=== PATIENT | male | born 1975 | race Hispanic/Latino ===

== ENCOUNTER 2025-05-03 07:03 | Inpatient (IN) | payer BC ==
[~2025-05-03] VITALS: Ht 172.7 cm; Wt 66.3 kg
[~2025-05-03 07:03] MED LIST: HYDR-3421 PO; LACT-441 PO
[2025-05-03 07:30] VITALS: BP 126/76; PULSE 79; RESP 18; TEMP 98.2
[2025-05-03] MEDS ORDERED: LIDOCAINE HCL 1% MDV 50ML VIAL ONE (08:51)
[2025-05-03] MEDS ORDERED: HEParin-NS 1,000 UNIT/500 ML 500 ML IV ONE (08:51)
[2025-05-03] MEDS ORDERED: MIDAZOLAM HCL 1 MG/ML 2ML VIAL ONE ×2 (09:08→09:30)
[2025-05-03] MEDS ORDERED: IOHEXOL-350 50ML VIAL IV ONE (09:22)
--- NOTE | 2025-05-03 10:45 | NUR ---
UNIT ARRIVAL PATIENT ARRIVED ON UNIT FROM [facility] ALERT/ORIENTED X3, NO PAIN, NO FURTHER QUESTIONS PATIENT IN NO DISTRESS, PRESENT AT BEDSIDE HAS A RIGHT BILLIARY DRAIN INSERTED, CLEAN AND INTACT
[2025-05-03] MEDS: 0.9%NACL 1000ML 1,000 ML IV SCH (11:30)
--- NOTE | 2025-05-03 11:41 | CCATH ---
PROCEDURE PERFORMED: Percutaneous transhepatic cholangiogram with placement of an 8-Persian multipurpose external drainage catheter. HISTORY: This is a 50-year-old male with jaundice for PTC with drainage. The patient also had undergone liver biopsy on 04/30/2025. Path report is pending. DESCRIPTION OF PROCEDURE: The patient was titrated with 4 mg of Versed and 200 mcg of fentanyl for sedation. Under fluoroscopy guidance on the right side, 1% Xylocaine was used for local anesthetic using a right lateral mid-axillary approach. A Chiba needle was placed into the biliary radicle. The right ducts are dilated. Multiple attempts were made over an angiographic wire and catheter to put the catheter in the common bile duct, but there is obstruction at the confluence. Therefore, an 8-Persian drainage catheter was placed into the dilated radicle in the right lobe of the liver and left for allowed external drainage. The catheter was secured. IMPRESSION: Obstruction at the level of the confluence of the right and left biliary radicle. Unable to place a catheter or wire. Therefore, an external 8-Persian drainage catheter was left for decompression and we will attempt in 48 hours to put an internal biliary catheter. TID: [id number] RECEIPT: [id number]
[2025-05-03 12:00] VITALS: BP 108/71; PULSE 72; RESP 20; TEMP 97.9
--- NOTE | 2025-05-03 12:38 | HP ---
[facility] HISTORY AND PHYSICAL Date of Service: May 03, 2025 Time of Service: 12:16 HISTORY OF PRESENT ILLNESS: Date of service: 05/03/2025, patient was seen in [facility] room 320 50-year-old male with previous history of colon cancer status post hemicolectomy in 10/2022. Patient was found to have stage III disease and was recommended to have adjuvant chemotherapy then but patient declined. Patient over the last month noticed that he was having generalized weakness with progressive jaundice. Patient was recently hospitalized in [facility] underwent further evaluation with abdominal MRCP on 04/28/2025 which showed two heterogeneously enhancing hepatic lesions, one in the right lobe at the hilar confluence measuring 3.5 cm x 3.6 cm x 2.3 cm and one subcu capsular lesion in segment 7 measuring 2.6 cm x1 0.4 cm x 2 cm with imaging features concerning for metastasis, there was compression noted of the right and left hepatic ducts with resultant intrahepatic biliary ductal prominence. Labs on 04/30/2025 was significant for WBC count of 6700, hemoglobin of 13.0, MCV of 75, platelet count of 514091. BMP showed sodium of 135, potassium 4.2, BUN of 14 , creatinine 0.7, blood glucose of 193, A1c of 7.6. Liver function tests showed total bilirubin of 18.9, direct bilirubin of 17.6, AST of 117, ALT of 350, alkaline phosphatase of 309. Patient is status post percutaneous transhepatic cholangiogram with placement of eight Scottish multipurpose external drainage catheter placement by Dr. Mir. Patient was found to have obstruction at the level of the confluence of right and left biliary radicle and catheter or wire was unable to be advanced. Patient underwent external eight Scottish catheter placement for decompression and plan is to re-attempt in 48 hours for evaluation of internal biliary catheter placement. Patient denies any significant shortness of breadth. He is having some pain postprocedure involving the drainage catheter site. No bleeding noted with drainage bag with biliary drainage noted. Patient will be monitored closely under hospitalist service and we will see how patient progresses in the next 24-48 hours. REVIEW OF SYSTEMS CONSTITUTIONAL: Denies fevers, chills, or night sweats. No unintentional weight loss reported. NEUROLOGICAL: Denies headache, amaurosis fugax, motor weakness, sensory deficit, vertigo/spinning sensation, gait abnormalities, or tremors. ENT: No hearing loss, otalgia, otorrhea, rhinitis, rhinorrhea, hoarseness, or sore throat. CARDIOVASCULAR: Denies any exertional angina, dyspnea on exertion, orthopnea, paroxysmal nocturnal dyspnea, palpitations, life-threatening arrhythmias, claudication. PULMONARY: Denies any shortness of breath, cough, phlegm/sputum, hemoptysis, pleuritic chest pain. SLEEP: Denies morning headaches, daytime somnolence or napping. Denies difficulty falling asleep, staying asleep, waking from sleep. Denies knowledge of snoring. GASTROINTESTINAL: Denies any type of dysphagia to either liquids or solids. Denies nausea, vomiting, pyrosis, early satiety, abdominal pain, diarrhea, constipation, or changes in stool consistency or caliber. Denies coffee-ground emesis, hematemesis, hematochezia, or melanotic stools. GENITOURINARY: Denies frequency, urgency, nocturia, hematuria or incontinence (Storage/Irritative symptoms.) Low urinary stream, straining to void, urinary intermittency or hesitancy, splitting of the voiding stream, terminal dribbling. ENDOCRINOLOGIC: Denies polyuria, polydipsia, polyphagia or heat/cold intolerances. HEMATOLOGIC: Denies thrombophilia/previous clots, or coagulopathy/bleeding disorders. ONCOLOGIC: Denies personal history of malignancy. DERMATOLOGIC: Denies rashes or pruritus. PSYCHIATRIC: Denies any suicidal or homicidal ideation. Denies hallucinations. ADDITIONAL PAST MEDICAL HISTORY: [History of colon cancer in 2022, recent diagnosis of obstructive jaundice with cholestatic hepatitis, hepatic lesions noted on MRCP) SOCIAL HISTORY: [Negative for smoking, alcohol use, drug use. Patient lives with his , Johnna Esteban. Patient is typically independent of all his ADLs. Patient denies difficulty pain is bills.] SURGICAL HISTORY: [Colectomy, recent CT-guided liver biopsy on 04/29/[address] Mir] Coded Allergies: No Known Drug Allergies (Unverified Allergy, Unknown, 12/21/22) PHYSICAL EXAM GENERAL APPEARANCE: The patient is awake, alert, and oriented, in no acute cardiopulmonary distress. NEUROLOGICAL: Cranial nerves II-XII grossly intact. Motor is 5/5 in bilateral upper and lower extremities proximal to distal. No sensory deficits. HEENT: Face is symmetric. Pupils are equal and reactive. Extraocular movements are intact. NECK: Supple. No JVD. No thyromegaly. No submental, submandibular, pre- /postauricular, occipital or supraclavicular lymphadenopathy. CHEST: Normal chest expansion. No Telemetry. LUNGS: Absence of any rales, rhonchi or any wheezing. CARDIOVASCULAR: Regular. S1 and S2 normal. No appreciable rubs, murmurs or gallops. ABDOMEN: Soft, nontender, and nondistended. There is no rebound, voluntary guarding, or rigidity. : Deferred. No Hope. EXTREMITIES: Non-edematous and not cyanotic. No clubbing. Good capillary refill. SKIN: No skin breakdown. Vital Sign (Last 24 Hours) 05/03/25 07:30 Temp 98.2 Pulse 79 Resp 18 B/P (MAP) 126/76 Pulse Ox 98 O2 Delivery Room Air FiO2 21 LABS: Current Medications Medications (Trade) Dose Ordered Sig/William Route PRN Reason Start Time Stop Time Status Last Admin Dose Admin Acetaminophen (TYLenol 325MG TAB) 650 mg Q6H PRN PO MILD PAIN (1-3) 05/03/25 11:30 06/02/25 11:29 Famotidine (Pepcid 20mg Tab) 20 mg BID PO 05/03/25 21:00 06/02/25 20:59 Hydromorphone HCl (DiLAUDid 0.5MG INJ) 0.5 mg Q6H PRN IVP SEVERE PAIN (7-10) 05/03/25 11:30 05/08/25 11:29 Ondansetron HCl (zoFRAN 4MG INJ) 4 mg Q6H PRN IVP NAUSEA/VOMITING 05/03/25 11:30 06/02/25 11:29 Sodium Chloride 1,000 ml @ 75 mls/hr [id number] IV 05/03/25 11:30 06/02/25 11:29 DIAGNOSTICS / RADIOLOGY: SERVICE 1032 REASON: ELEVATED BILI ORDERING PHYSICIAN: NELI SALEEM MD PROCEDURE: MRCP WWO - MRCP(ABDWWO)CHOLANGIOPANCREATO ADDENDUM REPORT ADDENDUM: Results were shared by telephone at 11:45 PM EST on 04-28-25 and acknowledged by Nurse Ms. Sindhu Beal. /Eastern EXAM: MRCP and MRI Abdomen with and without contrast CLINICAL HISTORY: Elevated bilirubin; history of colonic malignancy TECHNIQUE: Multiplanar, multisequence MRI of the abdomen was performed with and without intravenous contrast, including MRCP sequences. COMPARISON: No prior studies available for comparison. FINDINGS: Liver: The liver demonstrates surface nodularity with volume redistribution, with relative enlargement of the caudate and left lobes, consistent with underlying chronic liver disease. A heterogeneously appearing mass lesion measuring approximately 3.5 3.6 2.3 cm is seen in the right hepatic lobe at the region of the hilar confluence. This lesion compresses the left and right hepatic ducts, resulting in prominence of the intrahepatic biliary ducts bilaterally. A second subcapsular lesion in segment 7 measures approximately 2.6 1.4 2 cm (series 12, image 23/88). Both lesions are heterogeneously hypointense on T1- and T2-weighted sequences. Post-contrast imaging demonstrates heterogeneous moderate enhancement with peripheral irregular nodular enhancing areas and central non-enhancing regions. The right branch of the portal vein traverses the right lobar lesion and appears thinned and partially compressed. No hepatic venous thrombosis is identified. Minimal perihepatic ascites is present. Biliary System: The gallbladder is surgically absent. The common bile duct is normal in caliber, measuring 4 mm. The right and left hepatic ducts are prominent, measuring 9 mm each, secondary to extrinsic compression by the hepatic lesions. Pancreas: The pancreas is unremarkable. Spleen: The spleen measures 11.6 cm and is unremarkable. Adrenals: Both adrenal glands are unremarkable. Kidneys: Both kidneys are unremarkable. Vascular Structures: The right portal vein branch is thinned and partially compressed by the right hepatic lesion. No evidence of thrombosis in the hepatic veins. IMPRESSION: * Two heterogeneously enhancing hepatic lesions, one in the right lobe at the hilar confluence (3.5 3.6 2.3 cm) and one subcapsular lesion in segment 7 (2.6 1.4 2 cm), with imaging features concerning for metastatic deposits, likely related to known colonic malignancy. * Compression of the right and left hepatic ducts with resultant intrahepatic biliary ductal prominence. * Partial compression and thinning of the right portal vein branch by the right hepatic lesion. Underlying thrombus cannot be excluded. * Surface nodularity and volume redistribution of the liver, suggestive of underlying chronic liver disease. Recommend laboratory and clinical parameters correlation. * Minimal perihepatic ascites. * Gallbladder surgically absent. RECOMMENDATION: Histopathological correlation of the hepatic lesions is recommended for confirmation and characterization. /Eastern ASSESSMENT: Status post percutaneous transhepatic cholangiogram with placement of eight Scottish external drainage catheter by Dr. 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 for severe pain There is plans for repeat procedure in 48 hours for evaluation of internal biliary catheter placement Home medications were reconciled and updated once available Continue with prn antiemetics, pain control, patient will be started on a soft diet today All labs will be repeated in the morning We will keep patient on GI prophylaxis with Pepcid and DVT prophylaxis with SCDs Date of service: 05/03/2025 Plan of care was discussed with patient at bedside, Darwin Graf MD Advanced Care Planning: Which of the following were discussed: Hospice care: Yes __ No _X_ Therapeutic options: Yes _X_ No __ Advance directives: Yes _X_ No __ Other discussions: Discussed with who?: Patient Voluntary nature of this service was explained to the patient? Yes _x_ No __ Amount of time spent: 20 minutes DARWIN GRAF MD May 03, 2025 12:38
[2025-05-03 15:13] VITALS: O2SAT 98
[2025-05-03 16:00] VITALS: BP 133/81; PULSE 67; RESP 20; TEMP 98.1
[2025-05-03 20:00] VITALS: BP 128/75; PULSE 67; RESP 16; TEMP 97.7; O2SAT 97
[2025-05-03] MEDS: FAMOTIDINE 20MG TAB PO SCH (20:49)
[2025-05-04] VITALS (7 sets, daily range): BP systolic 118–149; BP diastolic 71–89; PULSE 69–81; RESP 16–20; TEMP 97.8–98.4; O2SAT 97–99
[2025-05-04 04:59] LABS: IMMATURE GRANULOCYTE ABSOLUTE 0.13 K/uL (0-1); NUCLEATED RED BLOOD CELLS 0.0 % (0.0-0.19); PLATELET COUNT (AUTO) 210 K/uL (130-400); RED BLOOD CELL COUNT(AUTO) 4.71 MIL/uL (4.50-6.20); RED CELL DISTRIBUTION WIDTH 19.6 % (11.0-15.5); WHITE BLOOD COUNT (AUTO) 7.0 K/uL (4.8-10.8)
[2025-05-04 05:12] LABS: INR 0.97 (0.85-1.15)
[2025-05-04 05:23] LABS: ASPARTATE AMINOTRANSFERASE 84.0 U/L (10-37); CREATININE 0.7 mg/dL (0.5-1.3); GLOMERULAR FILTR. RATE CALC 114.0 mL/min (>90); GLUCOSE,RANDOM 93.0 mg/dL (70-105); SODIUM SERUM 137.0 mmol/L (136-145); TOTAL PROTEIN, SERUM 6.6 g/dL (6.0-8.3); UREA NITROGEN, BLOOD 12.0 mg/dL (7-18)
--- NOTE | 2025-05-04 09:59 | PN ---
[facility] PROGRESS NOTE Date of Service: May 04, 2025 Time of Service: 09:59 HISTORY OF PRESENT ILLNESS: Date of service: 05/03/2025, patient was seen in [facility] room 320 50-year-old male with previous history of colon cancer status post hemicolectomy in 10/2022. Patient was found to have stage III disease and was recommended to have adjuvant chemotherapy then but patient declined. Patient over the last mo [facility] noticed that he was having generalized weakness with progressive jaundice. Patient was recently hospitalized in [facility] underwent further evaluation with abdominal MRCP on 04/28/2025 which showed two heterogeneously enhancing hepatic lesions, one in the right lobe at the hilar confluence measuring 3.5 cm x 3.6 cm x 2.3 cm and one subcu capsular lesion in segment 7 measuring 2.6 cm x1 0.4 cm x 2 cm with imaging features concerning for metastasis, there was compression noted of the right and left hepatic ducts with resultant intrahepatic biliary ductal prominence. Labs on 04/30/2025 was significant for WBC count of 6700, hemoglobin of 13.0, MCV of 75, platelet count of [id number]. BMP showed sodium of 135, potassium 4.2, BUN of 14 , creatinine 0.7, blood gluc ose of 193, A1c of 7.6. Liver function tests showed total bilirubin of 18.9, direct bilirubin of 17.6, AST of 117, ALT of 350, alkaline phosphatase of 309. Patient is status post percutaneous transhepatic cholangiogram with placement of eight Bruneian multipurpose external drainage catheter placement by Dr. Ramos. Patient was found to have obstruction at the level of the confluence of right and left biliary radicle and catheter or wire was unable to be advanced. Patient underwent external eight Bruneian catheter placement for decompression and plan is to re-attempt in 48 hours for evaluation of internal biliary catheter placement. Patient denies any significant shortness of breadth. He is having some pain postprocedure involving the drainage catheter site. No bleeding noted with drainage bag with biliary drainage noted. Patient will be monitored closely under hospitalist service and we will see how patient progresses in the next 24-48 hours. SUBJECTIVE: 05/04/2025: Patient was evaluated at bedside in room 320. Patient appears pale and jaundiced and is in no acute distress. Patient has an external catheter drain draining some amount of blood and blood clots this morning. Patient underwent percutaneous transhepatic cholangiogram yesterday. Initially the catheter drained biliary fluid however patient admits to noticing bloody drainage this morning after ambulating. Repeat hemoglobin and hematocrit was 12.7 and 36.9 which is stable. Towards the afternoon patient noticed biliary drainage. Dr. Ramos was consulted via telephone and he recommended continued biliary drainage and no emergent imaging was indicated at this moment. Patient is scheduled for internal biliary catheter placement tomorrow morning and will be kept NPO after midnight. REVIEW OF SYSTEMS CONSTITUTIONAL: Denies fevers, chills, or night sweats. No unintentional weight loss reported. Skin is jaundiced NEUROLOGICAL: Denies headache, amaurosis fugax, motor weakness, sensory deficit, vertigo/spinning sensation, gait abnormalities, or tremors. ENT: No hearing loss, otalgia, otorrhea, rhinitis, rhinorrhea, hoarseness, or sore throat. CARDIOVASCULAR: Denies any exertional angina, dyspnea on exertion, orthopnea, paroxysmal nocturnal dyspnea, palpitations, life-threatening arrhythmias, claudication. PULMONARY: Denies any shortness of breath, cough, phlegm/sputum, hemoptysis, pleuritic chest pain. SLEEP: Denies morning headaches, daytime somnolence or napping. Denies difficulty falling asleep, staying asleep, waking from sleep. Denies knowledge of snoring. GASTROINTESTINAL: Denies any type of dysphagia to either liquids or solids. Denies nausea, vomiting, pyrosis, early satiety, abdominal pain, diarrhea, constipation, or changes in stool consistency or caliber. Denies coffee-ground emesis, hematemesis, hematochezia, or melanotic stools. GENITOURINARY: Denies frequency, urgency, nocturia, hematuria or incontinence (Storage/Irritative symptoms.) Low urinary stream, straining to void, urinary intermittency or hesitancy, splitting of the voiding stream, terminal dribbling. ENDOCRINOLOGIC: Denies polyuria, polydipsia, polyphagia or heat/cold intolerances. HEMATOLOGIC: Denies thrombophilia/previous clots, or coagulopathy/bleeding di sorders. ONCOLOGIC: Patient has history of primary colon cancer status post hemicolectomy in 2022 with suspected metastasis to liver DERMATOLOGIC: Denies rashes or pruritus. PSYCHIATRIC: Denies any suicidal or homicidal ideation. Denies hallucinations. PHYSICAL EXAM GENERAL APPEARANCE: The patient is awake, alert, and oriented, in no acute cardiopulmonary distress. NEUROLOGICAL: Cranial nerves II-XII grossly intact. Motor is 5/5 in bilateral upper and lower extremities proximal to distal. No sensory deficits. HEENT: Face is symmetric. Pupils are equal and reactive. Extraocular movements are intact. Conjunctiva are jaundiced. NECK: Supple. No JVD. No thyromegaly. No submental, submandibular, pre- /postauricular, occipital or supraclavicular lymphadenopathy. CHEST: Normal chest expansion. No Telemetry. LUNGS: Absence of any rales, rhonchi or any wheezing. CARDIOVASCULAR: Regular. S1 and S2 normal. No appreciable rubs, murmurs or gallops. ABDOMEN: Soft, nontender, and nondistended. There is no rebound, voluntary guarding, or rigidity. External biliary drain catheter draining biliary drainage with mild bloody discharge : Deferred. No Hope. EXTREMITIES: Non-edematous and not cyanotic. No clubbing. Good capillary refill. SKIN: Diffuse jaundice noted No skin breakdown. Vital Signs (last 8hr) Date Time Temp Pulse Resp B/P (MAP) Pulse Ox O2 Delivery O2 Flow Rate FiO2 05/04/25 08:00 98.1 81 20 149/86 97 Room Air 05/04/25 04:00 98.4 69 20 136/77 95 Room Air LABS: Laboratory: Test 05/04/25 04:44 Range/Units White Blood Count 7.0 4.8-10.8 K/uL Red Blood Count 4.71 4.50-6.20 MIL/uL Hemoglobin 12.5 L 14.0-18.0 g/dL Hematocrit 36.6 L 42-54 % Mean Corpuscular Volume 77.7 L 79-99 fL Mean Corpuscular Hemoglobin 26.5 L 27.0-33.0 pg Mean Corpuscular Hemoglobin Concent 34.2 32.0-36.0 g/dL Red Cell Distribution Width 19.6 H 11.0-15.5 % Platelet Count 210 130-400 K/uL Mean Platelet Volume 11.2 H 7.5-10.5 fL Immature Granulocyte % (Auto) 1.9 H 0-1 % Neutrophils (%) (Auto) 67.3 40.0-77.0 % Lymphocytes (%) (Auto) 16.1 L 21.0-51.0 % Monocytes (%) (Auto) 11.8 3.0-13.0 % Eosinophils (%) (Auto) 2.3 0.0-8.0 % Basophils (%) (Auto) 0.6 0.0-5.0 % Neutrophils # (Auto) 4.7 1.8-7.7 K/uL Lymphocytes # (Auto) 1.1 1.0-4.8 K/uL Monocytes # (Auto) 0.8 0.1-1.0 K/uL Eosinophils # (Auto) 0.16 0.00-0.70 K/uL Basophils # (Auto) 0.04 0.00-0.20 K/uL Absolute Immature Granulocyte (auto 0.13 0-1 K/uL Nucleated Red Blood Cells 0.0 0.0-0.19 % Prothrombin Time 10.3 9.6-11.6 SEC Prothromb Time International Ratio 0.97 0.85-1.15 Activated Partial Thromboplast Time 25.9 L 26.3-35.5 SEC Sodium Level 137 136-145 mmol/L Potassium Level 3.6 3.5-5.1 mmol/L Chloride Level 101 101-111 mmol/L Carbon Dioxide Level 28 21-32 mmol/L Blood Urea Nitrogen 12 7-18 mg/dL Creatinine 0.7 0.5-1.3 mg/dL Glomerular Filtration Rate Calc 114 >90 mL/min Random Glucose 93 70-105 mg/dL Total Calcium 8.5 8.5-10.1 mg/dL Magnesium Level 2.20 1.80-2.40 mg/dL Total Bilirubin 13.5 H 0.2-1.0 mg/dL Aspartate Amino Transf (AST/SGOT) 84 H 10-37 U/L Alanine Aminotransferase (ALT/SGPT) 246 H 12-78 U/L Alkaline Phosphatase 278 H 50-136 U/L Total Protein 6.6 6.0-8.3 g/dL Albumin 2.4 L 3.5-5.0 g/dL Current Medications Medications (Trade) Dose Ordered Sig/William Route PRN Reason Start Time Stop Time Status Last Admin Dose Admin Acetaminophen (TYLenol 325MG TAB) 650 mg Q6H PRN PO MILD PAIN (1-3) 05/03/25 11:30 06/02/25 11:29 Famotidine (Pepcid 20mg Tab) 20 mg BID PO 05/03/25 21:00 06/02/25 20:59 05/04/25 09:15 20 MG Hydromorphone HCl (DiLAUDid 0.5MG INJ) 0.5 mg Q6H PRN IVP SEVERE PAIN (7-10) 05/03/25 11:30 05/08/25 11:29 05/03/25 16:44 0.5 MG Ondansetron HCl (zoFRAN 4MG INJ) 4 mg Q6H PRN IVP NAUSEA/VOMITING 05/03/25 11:30 06/02/25 11:29 Sodium Chloride 1,000 ml @ 75 mls/hr [id number] IV 05/03/25 11:30 06/02/25 11:29 DIAGNOSTICS / RADIOLOGY: [ ] PATIENT: REYES BUI MR#: [id number] : 1975 SEX: M AGE: 50 LOCATION: [facility] ROOM/BED: [facility] ORDER DT: ACCESSION#: ORDER#: REPORT#: [id number] REASON: ORDERING PHYSICIAN: PROCEDURE: - PROCEDURE PERFORMED: Percutaneous transhepatic cholangiogram with placement of an 8-Bruneian multipurpose external drainage catheter. HISTORY: This is a 50-year-old male with jaundice for PTC with drainage. The patient also had undergone liver biopsy on 04/30/2025. Path report is pending. DESCRIPTION OF PROCEDURE: The patient was titrated with 4 mg of Versed and 200 mcg of fentanyl for sedation. Under fluoroscopy guidance on the right side, 1% Xylocaine was used for local anesthetic using a right lateral mid-axillary approach. A Chiba needle was placed into the biliary radicle. The right ducts are dilated. Multiple attempts were made over an angiographic wire and catheter to put the catheter in the common bile duct, but there is obstruction at the confluence. Therefore, an 8-Bruneian drainage catheter was placed into the dilated radicle in the right lobe of the liver and left for allowed external drainage. The catheter was secured. IMPRESSION: Obstruction at the level of the confluence of the right and left biliary radicle. Unable to place a catheter or wire. Therefore, an external 8-Bruneian drainage catheter was left for decompression and we will attempt in 48 hours to put an internal biliary catheter. TID: [id number] RECEIPT: [id number] DICTATED BY: OSVALDO RAMOS MD DATE & TIME: 05/03/25912 ELECTRONICALLY SIGNED BY: OSVALDO RAMOS MD DATE & TIME: 05/03/25 1435 ASSESSMENT: Status post percutaneous transhepatic cholangiogram with placement of eight Bruneian external drainage catheter by Dr. 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, POA Anemia, microcytic, POA PLAN: History of obstructive jaundice secondary to liver lesion, status post percutaneous transhepatic cholangiogram with placement of 8 Bruneian external drainage catheter * Patient was admitted for biliary decompression for obstructive jaundice from possible metastasis to liver, one in the right lobe at the hilar confluence measuring 3.5 cm x 3.6 cm x 2.3 cm and one subcu capsular lesion in segment 7 measuring 2.6 cm x1 0.4 cm x 2 cm with imaging features concerning for metastasis, there was compression noted of the right and left hepatic ducts with resultant intrahepatic biliary ductal prominence. * Total bilirubin 30.5, AST 84, ALT 246, alk-phos 278 and albumin 24 * Patient is status post PT cholangiogram with placement of external drain ca theter, small amount of bloody drainage and blood clots were noted this morning which has subsequently cleared up * Patient pending internal biliary catheter by interventional radiologist, Dr. Ramos tomorrow a.m. * Repeat hemoglobin and hematocrit was 12.7 and 36.9, stable from the morning labs * We will keep patient NPO from midnight * Monitor CBC, and CMP tomorrow a.m. * Continue Dilaudid 0.5 IV q.6 PRN for pain Anemia, microcytic POA * Patient's hemoglobin was 12.5, hematocrit 36.6, * Serum iron is 102, TIBC 300, % saturation 34 * Continue monitoring History of colon cancer status post resection in 2022, POA * Patient had primary colon cancer status post resection 2022, now has suspected liver metastases * CT-guided biopsy of the metastasis was performed during previous admission on 04/29/2025 * We will request pathology report Continue DVT prophylaxis with SCD and GI prophylaxis with famotidine 20 mg b.i.d. ATTESTATION BY PHYSICIAN I have seen and examined the patient. I reviewed the documentation, medical decision making, and treatment plan as noted by the resident physician above. I agree with the findings and plan of care. ALDAIR KLINE MD, HARSHAVARDHA MD May 04, 2025 09:59
--- NOTE | 2025-05-04 10:10 | NUR ---
DCP:HOME Pt currently lives at home with his . Pt denies having any DME, home health, or provider services. Pt states that he is able to complete ADLs independently. PCP is [facility] and uses [facility] for any RX needs. At DC pt will want to go home and family can assist with transportation.
[2025-05-04 12:06] LABS: % IRON SATURATION 34.0 % (30-44); IRON, SERUM 102.0 mcg/dL (65-175)
--- NOTE | 2025-05-04 15:00 | NUR ---
Patient had clot in external biliary drain, as i was draining the bag it wouldn't drain no more due to clot blocking it. Flex, charge nurse, and I changed bag out. Drain is now draining with no issues.
[2025-05-05] VITALS (12 sets, daily range): BP systolic 117–152; BP diastolic 76–89; PULSE 63–83; RESP 12–19; TEMP 97.6–98.6; O2SAT 97
[2025-05-05 04:50] LABS: NUCLEATED RED BLOOD CELLS 0.0 % (0.0-0.19); PLATELET COUNT (AUTO) 212.0 K/uL (130-400); RED BLOOD CELL COUNT(AUTO) 4.52 MIL/uL (4.50-6.20); RED CELL DISTRIBUTION WIDTH 19.9 % (11.0-15.5); WHITE BLOOD COUNT (AUTO) 6.4 K/uL (4.8-10.8)
[2025-05-05 05:11] LABS: ASPARTATE AMINOTRANSFERASE 92.0 U/L (10-37); CREATININE 0.7 mg/dL (0.5-1.3); GLOMERULAR FILTR. RATE CALC 114.0 mL/min (>90); GLUCOSE,RANDOM 93.0 mg/dL (70-105); SODIUM SERUM 137.0 mmol/L (136-145); TOTAL PROTEIN, SERUM 6.3 g/dL (6.0-8.3); UREA NITROGEN, BLOOD 12.0 mg/dL (7-18)
[2025-05-05] MEDS ORDERED: LIDOCAINE HCL 1% 20 ML VIAL ONE (07:33)
[2025-05-05] MEDS ORDERED: IOHEXOL-350 50ML VIAL IV ONE (07:33)
[2025-05-05] MEDS ORDERED: HEParin-NS 1,000 UNIT/500 ML 500 ML IV ONE (07:35)
[2025-05-05] MEDS ORDERED: MIDAZOLAM HCL 1 MG/ML 2ML VIAL ONE ×2 (07:51→08:29)
[2025-05-05] MEDS ORDERED: PoTASSium chl 10% ELIXIR 20MEQ 20 MEQ/15 ML UDCUP PO PRN (08:30)
[2025-05-05] MEDS ORDERED: PoTASSium chloRIDE 20MEQ ER 20 MEQ ERTAB PO PRN (08:30)
--- NOTE | 2025-05-05 09:49 | PN ---
[facility] PROGRESS NOTE Date of Service: May 05, 2025 Time of Service: 09:49 HISTORY OF PRESENT ILLNESS: Date of service: 05/03/2025, patient was seen in [facility] room 320 50-year-old male with previous history of colon cancer status post hemicolectomy in 10/2022. Patient was found to have stage III disease and was recommended to have adjuvant chemotherapy then but patient declined. Patient over the last mo [facility] noticed that he was having generalized weakness with progressive jaundice. Patient was recently hospitalized in [facility] underwent further evaluation with abdominal MRCP on 04/28/2025 which showed two heterogeneously enhancing hepatic lesions, one in the right lobe at the hilar confluence measuring 3.5 cm x 3.6 cm x 2.3 cm and one subcu capsular lesion in segment 7 measuring 2.6 cm x1 0.4 cm x 2 cm with imaging features concerning for metastasis, there was compression noted of the right and left hepatic ducts with resultant intrahepatic biliary ductal prominence. Labs on 04/30/2025 was significant for WBC count of 6700, hemoglobin of 13.0, MCV of 75, platelet count of 103826. BMP showed sodium of 135, potassium 4.2, BUN of 14 , creatinine 0.7, blood gluc ose of 193, A1c of 7.6. Liver function tests showed total bilirubin of 18.9, direct bilirubin of 17.6, AST of 117, ALT of 350, alkaline phosphatase of 309. Patient is status post percutaneous transhepatic cholangiogram with placement of eight Grenadian multipurpose external drainage catheter placement by Dr. Mir. Patient was found to have obstruction at the level of the confluence of right and left biliary radicle and catheter or wire was unable to be advanced. Patient underwent external eight Grenadian catheter placement for decompression and plan is to re-attempt in 48 hours for evaluation of internal biliary catheter placement. Patient denies any significant shortness of breadth. He is having some pain postprocedure involving the drainage catheter site. No bleeding noted with drainage bag with biliary drainage noted. Patient will be monitored closely under hospitalist service and we will see how patient progresses in the next 24-48 hours. SUBJECTIVE: 05/04/2025: Patient was evaluated at bedside in room 320. Patient appears pale and jaundiced and is in no acute distress. Patient has an external catheter drain draining some amount of blood and blood clots this morning. Patient underwent percutaneous transhepatic cholangiogram yesterday. Initially the catheter drained biliary fluid however patient admits to noticing bloody drainage this morning after ambulating. Repeat hemoglobin and hematocrit was 12.7 and 36.9 which is stable. Towards the afternoon patient noticed biliary drainage. Dr. Mir was consulted via telephone and he recommended continued biliary drainage and no emergent imaging was indicated at this moment. Patient is scheduled for internal biliary catheter placement tomorrow morning and will be kept NPO after midnight. REVIEW OF SYSTEMS CONSTITUTIONAL: Denies fevers, chills, or night sweats. No unintentional weight loss reported. Skin is jaundiced NEUROLOGICAL: Denies headache, amaurosis fugax, motor weakness, sensory deficit, vertigo/spinning sensation, gait abnormalities, or tremors. ENT: No hearing loss, otalgia, otorrhea, rhinitis, rhinorrhea, hoarseness, or sore throat. CARDIOVASCULAR: Denies any exertional angina, dyspnea on exertion, orthopnea, paroxysmal nocturnal dyspnea, palpitations, life-threatening arrhythmias, claudication. PULMONARY: Denies any shortness of breath, cough, phlegm/sputum, hemoptysis, pleuritic chest pain. SLEEP: Denies morning headaches, daytime somnolence or napping. Denies difficulty falling asleep, staying asleep, waking from sleep. Denies knowledge of snoring. GASTROINTESTINAL: Denies any type of dysphagia to either liquids or solids. Denies nausea, vomiting, pyrosis, early satiety, abdominal pain, diarrhea, constipation, or changes in stool consistency or caliber. Denies coffee-ground emesis, hematemesis, hematochezia, or melanotic stools. GENITOURINARY: Denies frequency, urgency, nocturia, hematuria or incontinence (Storage/Irritative symptoms.) Low urinary stream, straining to void, urinary intermittency or hesitancy, splitting of the voiding stream, terminal dribbling. ENDOCRINOLOGIC: Denies polyuria, polydipsia, polyphagia or heat/cold intolerances. HEMATOLOGIC: Denies thrombophilia/previous clots, or coagulopathy/bleeding di sorders. ONCOLOGIC: Patient has history of primary colon cancer status post hemicolectomy in 2022 with suspected metastasis to liver DERMATOLOGIC: Denies rashes or pruritus. PSYCHIATRIC: Denies any suicidal or homicidal ideation. Denies hallucinations. PHYSICAL EXAM GENERAL APPEARANCE: The patient is awake, alert, and oriented, in no acute cardiopulmonary distress. NEUROLOGICAL: Cranial nerves II-XII grossly intact. Motor is 5/5 in bilateral upper and lower extremities proximal to distal. No sensory deficits. HEENT: Face is symmetric. Pupils are equal and reactive. Extraocular movements are intact. Conjunctiva are jaundiced. NECK: Supple. No JVD. No thyromegaly. No submental, submandibular, pre- /postauricular, occipital or supraclavicular lymphadenopathy. CHEST: Normal chest expansion. No Telemetry. LUNGS: Absence of any rales, rhonchi or any wheezing. CARDIOVASCULAR: Regular. S1 and S2 normal. No appreciable rubs, murmurs or gallops. ABDOMEN: Soft, nontender, and nondistended. There is no rebound, voluntary guarding, or rigidity. External biliary drain catheter draining biliary drainage with mild bloody discharge : Deferred. No Hope. EXTREMITIES: Non-edematous and not cyanotic. No clubbing. Good capillary refill. SKIN: Diffuse jaundice noted No skin breakdown. Vital Signs (last 8hr) Date Time Temp Pulse Resp B/P (MAP) Pulse Ox O2 Delivery O2 Flow Rate FiO2 05/05/25 08:00 98.4 66 17 152/80 99 Room Air 05/05/25 04:03 97.5 73 16 141/89 99 Room Air LABS: Laboratory: Test 05/05/25 04:40 05/04/25 04:44 Range/Units White Blood Count 6.4 4.8-10.8 K/uL Red Blood Count 4.52 4.50-6.20 MIL/uL Hemoglobin 11.9 L 14.0-18.0 g/dL Hematocrit 36.0 L 42-54 % Mean Corpuscular Volume 79.6 79-99 fL Mean Corpuscular Hemoglobin 26.3 L 27.0-33.0 pg Mean Corpuscular Hemoglobin Concent 33.1 32.0-36.0 g/dL Red Cell Distribution Width 19.9 H 11.0-15.5 % Platelet Count 212 130-400 K/uL Mean Platelet Volume 11.2 H 7.5-10.5 fL Nucleated Red Blood Cells 0.0 0.0-0.19 % Sodium Level 137 136-145 mmol/L Potassium Level 3.7 3.5-5.1 mmol/L Chloride Level 102 101-111 mmol/L Carbon Dioxide Level 28 21-32 mmol/L Blood Urea Nitrogen 12 7-18 mg/dL Creatinine 0.7 0.5-1.3 mg/dL Glomerular Filtration Rate Calc 114 >90 mL/min Random Glucose 93 70-105 mg/dL Total Calcium 8.2 L 8.5-10.1 mg/dL Total Bilirubin 11.0 H 0.2-1.0 mg/dL Aspartate Amino Transf (AST/SGOT) 92 H 10-37 U/L Alanine Aminotransferase (ALT/SGPT) 238 H 12-78 U/L Alkaline Phosphatase 235 H 50-136 U/L Total Protein 6.3 6.0-8.3 g/dL Albumin 2.3 L 3.5-5.0 g/dL Immature Granulocyte % (Auto) 1.9 H 0-1 % Neutrophils (%) (Auto) 67.3 40.0-77.0 % Lymphocytes (%) (Auto) 16.1 L 21.0-51.0 % Monocytes (%) (Auto) 11.8 3.0-13.0 % Eosinophils (%) (Auto) 2.3 0.0-8.0 % Basophils (%) (Auto) 0.6 0.0-5.0 % Neutrophils # (Auto) 4.7 1.8-7.7 K/uL Lymphocytes # (Auto) 1.1 1.0-4.8 K/uL Monocytes # (Auto) 0.8 0.1-1.0 K/uL Eosinophils # (Auto) 0.16 0.00-0.70 K/uL Basophils # (Auto) 0.04 0.00-0.20 K/uL Absolute Immature Granulocyte (auto 0.13 0-1 K/uL Prothrombin Time 10.3 9.6-11.6 SEC Prothromb Time International Ratio 0.97 0.85-1.15 Activated Partial Thromboplast Time 25.9 L 26.3-35.5 SEC Magnesium Level 2.20 1.80-2.40 mg/dL Iron Level 102 # 65-175 mcg/dL Total Iron Binding Capacity 300 250-450 mcg/dL Percent Iron Saturation 34.0 30-44 % Current Medications Medications (Trade) Dose Ordered Sig/William Route PRN Reason Start Time Stop Time Status Last Admin Dose Admin Acetaminophen (TYLenol 325MG TAB) 650 mg Q6H PRN PO MILD PAIN (1-3) 05/03/25 11:30 06/02/25 11:29 Famotidine (Pepcid 20mg Tab) 20 mg BID PO 05/03/25 21:00 06/02/25 20:59 05/04/25 20:07 20 MG Hydromorphone HCl (DiLAUDid 0.5MG INJ) 0.5 mg Q6H PRN IVP SEVERE PAIN (7-10) 05/03/25 11:30 05/08/25 11:29 05/03/25 16:44 0.5 MG Ondansetron HCl (zoFRAN 4MG INJ) 4 mg Q6H PRN IVP NAUSEA/VOMITING 05/03/25 11:30 06/02/25 11:29 Potassium Chloride 100 ml @ 100 mls/hr AD PRN IV POTASSIUM PROTOCOL 05/05/25 08:30 06/04/25 08:29 Potassium Chloride (K-Dur/Klor-Con 20meq) 20 meq AD PRN PO POTASSIUM PROTOCOL 05/05/25 08:30 06/04/25 08:29 Potassium Chloride (KCl 10% Elixir 20meq/15ml) 20 meq AD PRN PO POTASSIUM PROTOCOL 05/05/25 08:30 06/04/25 08:29 Sodium Chloride 1,000 ml @ 75 mls/hr [id number] IV 05/03/25 11:30 06/02/25 11:29 05/05/25 03:56 75 MLS/HR DIAGNOSTICS / RADIOLOGY: [ ] ASSESSMENT: Status post percutaneous transhepatic cholangiogram with placement of eight Grenadian external drainage catheter by Dr. 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, POA Anemia, microcytic, POA PLAN: History of obstructive jaundice secondary to liver lesion, status post percutaneous transhepatic cholangiogram with placement of 8 Grenadian external drainage catheter * Patient was admitted for biliary decompression for obstructive jaundice from possible metastasis to liver, one in the right lobe at the hilar confluence measuring 3.5 cm x 3.6 cm x 2.3 cm and one subcu capsular lesion in segment 7 measuring 2.6 cm x1 0.4 cm x 2 cm with imaging features concerning for metastasis, there was compression noted of the right and left hepatic ducts with resultant intrahepatic biliary ductal prominence. * Total bilirubin 30.5, AST 84, ALT 246, alk-phos 278 and albumin 24 * Patient is status post PT cholangiogram with placement of external drain marjorie ter, small amount of bloody drainage and blood clots were noted this morning which has subsequently cleared up * Patient pending internal biliary catheter by interventional radiologist, Dr. Mir tomorrow a.m. * Repeat hemoglobin and hematocrit was 12.7 and 36.9, stable from the morning labs * We will keep patient NPO from midnight * Monitor CBC, and CMP tomorrow a.m. * Continue Dilaudid 0.5 IV q.6 PRN for pain Anemia, microcytic POA * Patient's hemoglobin was 12.5, hematocrit 36.6, * Serum iron is 102, TIBC 300, % saturation 34 * Continue monitoring History of colon cancer status post resection in 2022, POA * Patient had primary colon cancer status post resection 2022, now has suspected liver metastases * CT-guided biopsy of the metastasis was performed during previous admission on 04/29/2025 * We will request pathology report Continue DVT prophylaxis with SCD and GI prophylaxis with famotidine 20 mg b.i.d. SHARAN ORTEGA MD May 05, 2025 09:49
--- NOTE | 2025-05-05 11:49 | CCATH ---
PROCEDURE PERFORMED: 1. Catheter cholangiogram. 2. Attempted placement of a catheter in the common bile duct. 3. Left another external 8.5-Swedish biliary catheter. HISTORY: This is a patient who underwent external PTC with the placement of an 8.5-Swedish catheter. The patient's bilirubin has decreased prior to the initial placement of a PTC drainage catheter. DESCRIPTION OF PROCEDURE: A catheter cholangiogram was performed. The study demonstrated that the biliary ducts are mildly dilated, not as previously. An existing 8.5-Swedish catheter was removed over an angiographic wire, and a C2 catheter, which was multiple attempts were made to access the common hepatic duct and common bile duct, but unsuccessful. After multiple attempts, another 8.5-Swedish biliary catheter was left in place to allow external drainage. IMPRESSION: Unsuccessful attempt to cannulate the common bile duct and common hepatic duct. I would recommend an MRCP for further evaluation, and I would also recommend after MRCP for further intervention. TID: [id number] RECEIPT: [id number]
--- NOTE | 2025-05-05 12:35 | CONS ---
CONSULT NOTE: Patient with past medical history significant for diabetes mellitus and vitiligo. This patient was found to have a deficiency anemia and was investigated. Patient was found to have mass to the ascending colon status post biopsy which was consistent with adenocarcinoma to the ascending colon. Patient have hemicolectomy. Showed patient to have T3, N1, M0. There was 16 lymph node resected with 1 lymph node was positive. recovering very well from his surgery. Patient with family history of mother with breast cancer and grandfather with colon cancer. Patient with mild abdominal pain. This patient refuses treatment with adjuvant chemotherapy treatment 2022. With the patient will likely have recurrent disease at this time. Patient was admitted with jaundice. Percutaneous drainage tube was tried. With the patient continued to have very elevated bilirubin. Past Medical History: Colon Cancer Obesity Diabetes Mellitus II Past Surgical History: 12/25/2022, Procedure: Partial resection of colon (procedure) Medications: Ondansetron Oral 8 mg tablet 1 tablet orally every 8 hours as needed for nausea and vomiting. Medications reviewed and reconciled with patient. Allergies: No known medication allergies Smoking Status: Smoking Tobacco : Never smoker; Smokeless Tobacco : Never used smokeless tobacco; Vaping : Never vaped Social History: Working T[employer]man Denies Alcohol Denies Drugs Family History: Father: No History of Disease Mother: - Breast cancer ROS: GENERAL: The patient denies any dizziness, chills, fever, or night sweats. HEENT: Sclarel icterusThe patient denies any diplopia, hearing problems, oropharyngeal soreness, or jaundice. CARDIOPULMONARY: The patient denies any chest pain, palpitations, and shortness of breath or cough. GASTROINTESTINAL: Patient with mild abdominal pain. There is surgical wound which is healed. GENITOURINARY: No dysuria, incontinence, or frequency. MUSCULOSKELETAL: The patient denies muscle or joint aches. The patient denies pitting edema. SKIN: Jaundice NEUROLOGICAL: The patient denies any headache or double vision. Patient with difficulty hearing Vitals: Height: 68 in; Weight: 175 lb; Blood pressure: 153/69, Pulse: 76, Temperature: 98.6 F, Respirations: 18, Pain Scale: 0 Karnofsky: Not Assessed Physical Exam: GENERAL: No acute respiratory distress. VITAL SIGNS: Reviewed and stable. HEENT: Sclarel icterus. The pupils are equal and reactive to light. The oropharyngeal cavity is within normal limits. NECK: Supple without lymphadenopathy. CHEST: Lung is clear bilaterally there is no wheezing or crackles. HEART: Sounds are regular and rhythmic. ABDOMEN: There is percutaneous drainage tube to the right side. There is mild te nderness all over the abdomen. There is no guarding or rigidity. The surgical wound is healed. EXTREMITIES: No pitting edema. No petechial lesions or bruises. SKIN: Jaundice NEUROLOGICAL: The patient is alert and oriented. No focal deficits. Muscle strength is 5/5. LYMPH NODES: There is no lymphadenopathy could be felt in the neck, supraclavicular, or axillary. Impression: 1. History of colorectal cancer of ascending colon. The tumor was T3, N1, M0. 16 lymph node resected with 1 lymph node was positive. This patient have a stage IIIb colon cancer Diagnosis 01/2023 with the patient refused treatment at that time. Patient have metastatic disease to the liver. With the patient have significant jaundice. Percutaneous drainage tube was tried which is not helping at all. 2. Microcytic anemia 3. Vitiligo 4. Diabetes mellitus Plan: 1. Patient with stage IV colon cancer at this time with multiple lesion to the liver. With the patient have jaundice. Percutaneous drainage tube was tried multiple times with no success. 2. I have long discussion with the patient and family member regarding the plan of care. I answer all question and concern and I spent more than 35 minutes. His was with him in the room. I told them that he has stage IV the patient is not curative. Surgery is not an option. Radiation therapy treatment is not an option. 3. If the patient continued to have elevated bilirubin and that this patient only candidate for hospice. If his bilirubin drop after the percutaneous transhepatic drainage tube then this patient could be candidate for palliative medicine. If the patient agree on treatment that this patient will need Port-A-Cath insertion. BARTOLO YUNG MD May 05, 2025 12:35
--- NOTE | 2025-05-05 13:04 | DS ---
Discharge Summary Hospital Course Summary: This is a 50-year-old male with previous history of colon cancer status post hemicolectomy in 10/2022. Patient was found to have stage III disease and was recommended to have adjuvant chemotherapy then but patient declined. Patient over the last month noticed that he was having generalized weakness with pr ogressive jaundice. Patient was recently hospitalized in [facility] underwent further evaluation with abdominal MRCP on 04/28/2025 which showed two heterogeneously enhancing hepatic lesions, one in the right lobe at the hilar confluence measuring 3.5 cm x 3.6 cm x 2.3 cm and one sub capsular lesion in segment 7 measuring 2.6 cm x1 0.4 cm x 2 cm with imaging features concerning for metast asis, there was compression noted of the right and left hepatic ducts with resultant intrahepatic biliary ductal prominence. Labs on 04/30/2025 was significant for WBC count of 6700, hemoglobin of 13.0, MCV of 75, platelet count of 909640. BMP showed sodium of 135, potassium 4.2, BUN of 14 , creatinine 0.7, blood glucose of 193, A1c of 7.6. Liver function tests showed total bilirubin of 18.9, direct bilirubin of 17.6, AST of 117, ALT of 350, alkaline phosphatase of 309. Patient is status post percutaneous transhepatic cholangiogram with placement of eight Burmese multipurpose external drainage catheter placement by Dr. Ramos. Patient was found to have obstruction at the level of the confluence of right and left biliary radicle and catheter or wire was unable to be advanced. Patient underwent external eight Burmese catheter placement for decompression and plan is to re-attempt in 48 hours for evaluation of internal biliary catheter placement. Patient underwent a repeat percutaneous transhepatic cholangiogram on 05/05/2025 which was also unsuccessful, and Dr. Ramos believes it could be due to [place] tumor obstructing the passage. An MRCP was ordered today and a repeat internal biliary catheterization will be attempted on 05/10/2025. Oncologist was consulted who recommended palliative care if repeated attempts to biliary catheterization are unsuccessful as the patient has stage IV colon cancer with multiple lesions to the liver with extensive jaundice, not amenable to chemotherapy, radiotherapy, and surgery. Patient will be discharged home with the external biliary catheter with external bag in place and educated to keep the catheter site clean and dry, avoid pulling the drain and keep regular flushes to prevent blockage. Patient was instructed to return to the facility to have a repeat attempt for internal biliary catheterization on 05/10/2025. Patient was instructed to monitor for red flag signs like increased bleeding from the drain site, worsening abdominal pain, fevers, chills, confusion and return to ED if needed. Supervisor [employer](s): DR RAMOS, Intreventional radiologist DR. YUNG, Oncologist CONSULT NOTE: Patient with past medical history significant for diabetes mellitus and vitiligo. This patient was found to have a deficiency anemia and was investigated. Patient was found to have mass to the ascending colon status post biopsy which was consistent with adenocarcinoma to the ascending colon. Patient have hemicolectomy. Showed patient to have T3, N1, M0. There was 16 lymph node resected with 1 lymph node was positive. recovering very well from his surgery. Patient with family history of mother with breast cancer and grandfather with colon cancer. Patient with mild abdominal pain. This patient refuses treatment with adjuvant chemotherapy treatment 2022. With the patient will likely have recurrent disease at this time. Patient was admitted with jaundice. Percutaneous drainage tube was tried. With the patient continued to have very elevated bilirubin. Past Medical History: Colon Cancer Obesity Diabetes Mellitus II Past Surgical History: 12/25/2022, Procedure: Partial resection of colon (procedure) Medications: Ondansetron Oral 8 mg tablet 1 tablet orally every 8 hours as needed for nausea and vomiting. Medications reviewed and reconciled with patient. 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 HEENT: Sclarel icterusThe patient denies any diplopia, hearing problems, oropharyngeal soreness, or jaundice. CARDIOPULMONARY: The patient denies any chest pain, palpitations, and shortness of breath or cough. GASTROINTESTINAL: Patient with mild abdominal pain. There is surgical wound which is healed. GENITOURINARY: No dysuria, incontinence, or frequency. MUSCULOSKELETAL: The patient denies muscle or joint aches. The patient denies pitting edema. SKIN: Jaundice NEUROLOGICAL: The patient denies any headache or double vision. Patient with difficulty hearing Vitals: Height: 68 in; Weight: 175 lb; Blood pressure: 153/69, Pulse: 76, Temperature: 98.6 F, Respirations: 18, Pain Scale: 0 Karnofsky: Not Assessed Physical Exam: GENERAL: No acute respiratory distress. VITAL SIGNS: Reviewed and stable. HEENT: Sclarel icterus. The pupils are equal and reactive to light. The oropharyngeal cavity is within normal limits. NECK: Supple without lymphadenopathy. CHEST: Lung is clear bilaterally there is no wheezing or crackles. HEART: Sounds are regular and rhythmic. ABDOMEN: There is percutaneous drainage tube to the right side. There is mild tenderness all over the abdomen. There is no guarding or rigidity. The surgical wound is healed. EXTREMITIES: No pitting edema. No petechial lesions or bruises. SKIN: Jaundice NEUROLOGICAL: The patient is alert and oriented. No focal deficits. Muscle strength is 5/5. LYMPH NODES: There is no lymphadenopathy could be felt in the neck, supraclavicular, or axillary. Impression: 1. History of colorectal cancer of ascending colon. The tumor was T3, N1, M0. 16 lymph node resected with 1 lymph node was positive. This patient have a stage IIIb colon cancer Diagnosis 01/2023 with the patient refused treatment at that time. Patient have metastatic disease to the liver. With the patient have significant jaundice. Percutaneous drainage tube was tried which is not helping at all. 2. Microcytic anemia 3. Vitiligo 4. Diabetes mellitus Plan: 1. Patient with stage IV colon cancer at this time with multiple lesion to the liver. With the patient have jaundice. Percutaneous drainage tube was tried multiple times with no success. 2. I have long discussion with the patient and family member regarding the plan of care. I answer all question and concern and I spent more than 35 minutes. His was with him in the room. I told them that he has stage IV the patient is not curative. Surgery is not an option. Radiation therapy treatment is not an option. 3. If the patient continued to have elevated bilirubin and that this patient only candidate for hospice. If his bilirubin drop after the percutaneous transhepatic drainage tube then this patient could be candidate for palliative medicine. If the patient agree on treatment that this patient will need Port-A-Cath insertion. BARTOLO YUNG MD May 05, 2025 12:35 Electronically Signed by: BARTOLO YUNG MD05/05/25 1449 Electronically Co-Signed by: Procedure(s): CARDIAC CATHLAB REPORT Signed PATIENT: REYES BUI MR#: [id number] : 1975 SEX: M AGE: 50 LOCATION: [facility] ROOM/BED: 320-1 ORDER DT: ACCESSION#: ORDER#: REPORT#: [id number] REASON: ORDERING PHYSICIAN: PROCEDURE: - PROCEDURE PERFORMED: Percutaneous transhepatic cholangiogram with placement of an 8-Burmese multipurpose external drainage catheter. HISTORY: This is a 50-year-old male with jaundice for PTC with drainage. The patient also had undergone liver biopsy on 04/30/2025. Path report is pending. DESCRIPTION OF PROCEDURE: The patient was titrated with 4 mg of Versed and 200 mcg of fentanyl for sedation. Under fluoroscopy guidance on the right side, 1% Xylocaine was used for local anesthetic using a right lateral mid-axillary approach. A Chiba needle was placed into the biliary radicle. The right ducts are dilated. Multiple attempts were made over an angiographic wire and catheter to put the catheter in the common bile duct, but there is obstruction at the confluence. Therefore, an 8-Burmese drainage catheter was placed into the dilated radicle in the right lobe of the liver and left for allowed external drainage. The catheter was secured. IMPRESSION: Obstruction at the level of the confluence of the right and left biliary radicle. Unable to place a catheter or wire. Therefore, an external 8-Burmese drainage catheter was left for decompression and we will attempt in 48 hours to put an internal biliary catheter. TID: [id number] RECEIPT: [id number] DICTATED BY: OSVALDO RAMOS MD DATE & TIME: 05/03/25 0913 ELECTRONICALLY SIGNED BY: OSVALDO RAMOS MD DATE & TIME: 05/03/25 8185 PATIENT: REYES BUI MR#: [id number] : 1975 SEX: M AGE: 50 LOCATION: [facility] ROOM/BED: 320-1 ORDER DT: ACCESSION#: ORDER#: REPORT#: [id number] REASON: ORDERING PHYSICIAN: PROCEDURE: - PROCEDURE PERFORMED: 1. Catheter cholangiogram. 2. Attempted placement of a catheter in the common bile duct. 3. Left another external 8.5-Burmese biliary catheter. HISTORY: This is a patient who underwent external PTC with the placement of an 8.5-Burmese catheter. The patient's bilirubin has decreased prior to the initial placement of a PTC drainage catheter. DESCRIPTION OF PROCEDURE: A catheter cholangiogram was performed. The study demonstrated that the biliary ducts are mildly dilated, not as previously. An existing 8.5-Burmese catheter was removed over an angiographic wire, and a C2 catheter, which was multiple attempts were made to access the common hepatic duct and common bile duct, but unsuccessful. After multiple attempts, another 8.5-Burmese biliary catheter was left in place to allow external drainage. IMPRESSION: Unsuccessful attempt to cannulate the common bile duct and common hepatic duct. I would recommend an MRCP for further evaluation, and I would also recommend after MRCP for further intervention. TID: [id number] RECEIPT: [id number] DICTATED BY: OSVALDO RAMOS MD DATE & TIME: 05/05/25 0802 ELECTRONICALLY SIGNED BY: DATE & TIME: Assessment/Plan: ASSESSMENT: Status post percutaneous transhepatic cholangiogram with placement of eight Burmese external drainage catheter by Dr. 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 Ramos, Dr. Yung FOLLOW UP APPOINTMENT(S) : f/u with PCP in one 2-3 days, f/u with Dr. Yung PROCEDURES: IMAGING (S) : report attached to summary MICROBIOLOGY : report attached to summary ACTIVITY : ad kayce HOME MEDICATIONS : Continued Home Medications: Discontinued Scripts Lactulose (Lactulose) 10 Gram/15 Ml Solution, 30 ML PO BID for constipation for 7 Days, #500 ML 1 Refill Prov:NELI SALEEM MD 04/30/25 Hydroxyzine HCl (Hydroxyzine HCl) 25 Mg Tablet, 1 TAB PO TID for itching for 7 Days, #21 TAB 1 Refill Prov:NELI SALEEM MD 04/30/25 Time spent arranging discharge: 1-30 minutes ATTESTATION BY PHYSICIAN I have seen and examined the patient. I reviewed the documentation, medical decision making, and treatment plan as noted by the resident physician above. I agree with the findings and plan of care. ALDAIR KLINE MD, HARSHAVARDHA MD May 05, 2025 13:04
--- NOTE | 2025-05-05 14:50 | NUR ---
DISCHARGE PERIPHERAL IV REMOVED DISCHARGE EDUCATION AND INSTRUCTIONS PROVIDED TO PATIENT PATIENT AWARE TO FOLLOW UP WITH PCP ON SATURDAY FOR PROCEDURE IN THE EVENING PATIENT AWARE TO CONTINUE HOME MEDICATIONS DIRECTED BY MD ALL QUESTIONS ANSWERED
[2025-05-05] MEDS ORDERED: GADOTERATE MEGLUMINE 10 MMOL/20 ML VIAL IV ONE (17:27)
--- NOTE | 2025-05-05 22:30 | HMCIMG ---
STUDY MR abdomen with intravenous contrast CLINICAL HISTORY Obstructive jaundice with known right hepatic lobe masses; evaluation of biliary obstruction and hepatic lesions TECHNIQUE Multisequence, multiplanar magnetic resonance images of the abdomen were obtained after intravenous administration of approximately 14 cc of gadolinium-based contrast, including dynamic multiphase postcontrast imaging and 3D MRCP sequences COMPARISON MRCP 04/28/2025, abdominal ultrasound 04/28/2025, CT-guided liver biopsy 04/29/2025, and prior cross-sectional imaging reports documenting right hepatic lesions and intrahepatic biliary dilatation FINDINGS Lower thorax Small right pleural effusion measuring up to approximately 1.5 cm and a small left pleural effusion measuring up to approximately 1 cm are present. No focal basal lung consolidation is seen on the imaged portions. Liver The liver is enlarged with diffuse signal loss on opposed-phase imaging consistent with hepatic steatosis. Contour is mildly irregular suggesting chronic liver disease. Two heterogeneous hepatic masses are again seen in the right lobe: a hilar/right lobe lesion measuring approximately 4.1 x 3.4 cm and a peripheral subcapsular lesion in segment 7 measuring approximately 2.9 x 1.9 cm with overlying capsular retraction. These lesions demonstrate interval stability in size and morphology compared with prior imaging. No new focal hepatic lesions are identified. Biliary tree There is intrahepatic biliary radical dilatation confined to the right lobe, related to mass effect from the hilar/right lobe lesion. The left lobe intrahepatic ducts are not dilated on the current study, representing an interval change compared with prior imaging in which intrahepatic ductal dilatation involved both lobes. The extrahepatic common bile duct is not significantly dilated. Gallbladder is surgically absent. 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 The main portal vein and left portal vein branch remain opacified. Periportal and perisplenic collaterals are present, in keeping with portal hypertension. Spleen and varices Spleen size is within the upper limits of normal. Varices are present at the splenic hilum and adjacent to the superior pole of the spleen. Minimal perihepatic fluid is present without large-volume ascites. Pancreas Pancreatic morphology and enhancement are within normal limits without focal mass or ductal dilatation. Adrenals and kidneys Adrenal glands are normal in size and signal without focal lesion. Kidneys enhance symmetrically without hydronephrosis or solid renal mass. Stomach, bowel, and mesentery Limited assessment of the stomach and bowel demonstrates no obstructing mass or segmental wall thickening within the upper abdomen. No localized intra-abdominal collection is identified. Lymph nodes No bulky abdominal or sujata hepatis lymphadenopathy is demonstrated. Aorta and IVC No abdominal aortic aneurysm is identified. The inferior vena cava is patent. IMPRESSION * Two heterogeneous right hepatic lobe masses, including a hilar/right lobe lesion and a peripheral segment 7 subcapsular lesion with capsular retraction, demonstrating interval stability; in the context of chronic liver disease and capsular retraction, imaging differential includes hepatic metastases as well as multifocal cholangiocarcinoma. * Intrahepatic biliary ductal dilatation now confined to the right hepatic lobe, secondary to mass effect from the hilar/right lobe lesion, representing an interval change from prior examinations where intrahepatic biliary dilatation involved both lobes and concordant with the clinical picture of obstructive jaundice. 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 * Hepatomegaly with fatty liver changes and mild surface irregularity, supportive of underlying chronic liver disease, with minimal perihepatic fluid and small bilateral pleural effusions. /[place]
== END 2025-05-05 14:30 | disposition home or self-care (01) | DRG 444 ==
LOC: DAH 07:03 → DAHIP 07:04 → UNDOADMIN 07:04 → 3CH 10:45 → DAHIP 11:19 → 3CH 12:00
PROVIDERS: ADMIT Internal Medicine; ATTEND Internal Medicine
PROC: 0F9930Z Drainage of Common Bile Duct with Drainage Device, Percutaneous Approach (ICD-10-PCS; 2025-05-03)
PROC: BF131ZZ Fluoroscopy of Gallbladder and Bile Ducts using Low Osmolar Contrast (ICD-10-PCS; principal; 2025-05-05)
DX: K83.1 Obstruction of bile duct (principal); E43 Unspecified severe protein-calorie malnutrition; I81 Portal vein thrombosis; C78.7 Secondary malignant neoplasm of liver and intrahepatic bile duct; D50.9 Iron deficiency anemia, unspecified; E11.9 Type 2 diabetes mellitus without complications; D53.9 Nutritional anemia, unspecified; E66.9 Obesity, unspecified; Z85.038 Personal history of other malignant neoplasm of large intestine; Z80.0 Family history of malignant neoplasm of digestive organs; Z80.3 Family history of malignant neoplasm of breast; Z83.3 Family history of diabetes mellitus; Z85.048 Personal history of other malignant neoplasm of rectum, rectosigmoid junction, and anus; Z90.49 Acquired absence of other specified parts of digestive tract; Z79.899 Other long term (current) drug therapy; Z68.22 Body mass index [BMI] 22.0-22.9, adult
CPT/HCPCS: 36415; 47531; 47533; 74183; 80053; 83540; 83550; 83735; 85014; 85018; 85025; 85027; 85610; 85730; 99156; 99157; A4606; C1769; C1894; G0378; J1171; J1644; J2003; J2250; J3010; J3490; Q9967; A4215; A4216; A4221; A4223; A4335; A4663; A9575; C1729; C1887